=== PATIENT | female | born 2000 | race Two or more races ===

== ENCOUNTER 2025-03-21 00:44 | Emergency (ER) | payer OTHER ==
[~2025-03-21] VITALS: Ht 154.9 cm; Wt 68.0 kg
[2025-03-21] MEDS ORDERED: FAMOTIDINE/PF 20 MG/2 ML VIAL ONE (02:07)
[2025-03-21] MEDS ORDERED: PROMETHAZINE HCL 50 MG/ML AMPUL IM ONE (02:07)
[2025-03-21] MEDS ORDERED: FAMOTIDINE/PF 20 MG/2 ML VIAL IV PUSH STA (02:07)
[2025-03-21] MEDS ORDERED: PROMETHAZINE HCL 50 MG/ML AMPUL IM STA (02:07)
[2025-03-21] MEDS ORDERED: 0.9 % SODIUM CHLORIDE 1,000 ML IV ONE (02:15)
[2025-03-21 02:26] LABS: BASO % 0.4 % (0.1-1.2); EOS # 0.03 (0.04-0.54); EOS % 0.4 % (0.7-7.0); LYMPH # 0.93 (1.18-3.74); LYMPH % 10.9 % (19.3-53.1); MEAN PLATELET VOLUME 10.20 fl (9.4-12.4); MONO # 0.23 (0.24-0.82); MONO % 2.7 % (4.7-12.5); NEUT # 7.32 (1.56-6.13); NEUT % 85.4 % (34.0-71.1); RED CELL DISTRIBUTION WIDTH 12.1 % (11.6-14.4)
[2025-03-21 03:08] LABS: URINE APPEARANCE Clear; URINE BILIRRUBIN Negative (NEGATIVE); URINE BLOOD Negative; URINE COLOR Yellow; URINE GLUCOSE Negative (NEGATIVE); URINE LEUKOCYTE Trace; URINE NITRATE Negative; URINE PROTEIN Trace (NEGATIVE); URINE UROBILINOGEN 0.2 E.U./dl
[2025-03-21 03:12] LABS: URINE BACTERIA 3033.4 uL (0.0-1933); URINE EPITHELIAL CELLS 80.7 uL (0.0-38.8); URINE RBC 7.9 uL (0.0-20.8); URINE WBC 59.9 uL (0.0-23.2)
[2025-03-21 03:18] LABS: ALT/SGPT 22 U/L (12-78); AST/SGOT 20 U/L (15-37); BILIRUBIN TOTAL 0.60 mg/dL (0.3-1.2); BUN CREA RATIO 15 (7.0-25.0); CREATININE SERUM 0.61 mg/dL (0.55-1.02); GFR 121.54; GLOBULINA 3.7 G/DL (2.4-3.5); GLUCOSE FASTING 91 mg/dL (65-100); OSMOLALITY SERUM 272 MOSM/KG (275-295)
[2025-03-21 03:27] LABS: HCG QUANTITATIVE < 1 mUI/mL (1-3)
[2025-03-21 03:28] LABS: URINE CAST 0.58 uL (0.0-1.40); URINE KETONE >=160 (NEGATIVE)
[2025-03-21] MEDS ORDERED: ZOFRAN8 MG PO (06:01)
[2025-03-21] MEDS ORDERED: PEPCID40 MG PO (06:01)
== END 2025-03-21 06:04 ==
LOC: ER 01:19
PROVIDERS: General Practice
DX: E86.0 Dehydration (principal); R11.10 Vomiting, unspecified

== ENCOUNTER 2025-06-25 22:19 | Emergency (ER) | payer OTHER ==
[~2025-06-25] VITALS: Ht 154.9 cm; Wt 70.4 kg
[~2025-06-25 22:19] MED LIST: PEPCID40 MG PO; ZOFRAN8 MG PO
[2025-06-25] MEDS ORDERED: PRENATA CHEWAB1 EACH (23:59)
[2025-06-26] MEDS ORDERED: ACETAMINOPHEN 500 MG GEL..CAP PO STA (00:50)
[2025-06-26] MEDS ORDERED: ORPHENADRINE CITRATE 30 MG/ML AMPUL IM STA (00:50)
[2025-06-26] MEDS ORDERED: ACETAMINOPHEN 500 MG GEL..CAP PO ONE (00:54)
[2025-06-26] MEDS ORDERED: ORPHENADRINE CITRATE 30 MG/ML AMPUL ONE (00:54)
[2025-06-26 01:39] LABS: BASO % 0.3 % (0.1-1.2); EOS # 0.20 (0.04-0.54); EOS % 2.1 % (0.7-7.0); LYMPH # 2.50 (1.18-3.74); LYMPH % 26.2 % (19.3-53.1); MEAN PLATELET VOLUME 9.90 fl (9.4-12.4); MONO # 0.56 (0.24-0.82); MONO % 5.9 % (4.7-12.5); NEUT # 6.21 (1.56-6.13); NEUT % 65.0 % (34.0-71.1); RED CELL DISTRIBUTION WIDTH 12.4 % (11.6-14.4)
[2025-06-26 01:59] LABS: URINE APPEARANCE Clear; URINE BACTERIA 1376.9 uL (0.0-1933); URINE BILIRRUBIN Negative (NEGATIVE); URINE BLOOD Negative; URINE COLOR Yellow; URINE EPITHELIAL CELLS 17.4 uL (0.0-38.8); URINE GLUCOSE Negative (NEGATIVE); URINE LEUKOCYTE Small; URINE NITRATE Negative; URINE PROTEIN Negative (NEGATIVE); URINE RBC 3.6 uL (0.0-20.8); URINE UROBILINOGEN 0.2 E.U./dl; URINE WBC 27.7 uL (0.0-23.2)
[2025-06-26 02:18] LABS: URINE CAST 0.28 uL (0.0-1.40); URINE KETONE 40 (NEGATIVE)
== END 2025-06-26 06:08 ==
LOC: ER 22:19
PROVIDERS: General Practice
DX: O26.891 Other specified pregnancy related conditions, first trimester (principal); R10.20 Pelvic and perineal pain unspecified side; Z3A.12 12 weeks gestation of pregnancy